=== PATIENT | female | born 1955 | race Caucasian/White ===

== ENCOUNTER 2016-11-29 17:54 | Emergency (ER) | payer BC, OTHER ==
[~2016-11-29] VITALS: Wt 87.5 kg
[~2016-11-29 17:54] MED LIST: AMLODIPINE PO; GLIMEPIRIDE PO; HYDR-3498 PO; IBUP-1542 PO; LISINOPRIL PO; METFORMIN PO; OMEPRAZOLE PO
[2016-11-29] MEDS ORDERED: ONDANSETRON 4 MG INJ IV STA ×2 (19:36→21:50)
[2016-11-29] MEDS ORDERED: SOD CHLORIDE 0.9% 500 ML IV STA (19:36)
[2016-11-29] MEDS ORDERED: morphine 4 MG/ML VIAL IV STA ×2 (19:36→21:50)
--- NOTE | 2016-11-29 19:52 | ERD ---
ER Documentation Chief Complaint Date/Time DATE: 11/29/16 TIME: 19:50 Chief Complaint LEFT SIDED FLANK PAIN X 2 DAYS HPI Extremely pleasant 60-year-old female who presents with 2 days of symptoms that include left flank and left upper quadrant abdominal pain. She does note mild fever today. The patient does describe 2 episodes of nonbloody nonbilious emesis, no diarrhea, no blood in the stool. She denies any dysuria urgency or frequency, no cough, no pleuritic pain. ROS All systems reviewed and are negative except as per history of present illness. Medications Home Meds Active Scripts Ondansetron (Ondansetron Odt) 4 Mg Tab.rapdis, 4 MG PO Q6H Y for NAUSEA AND/OR VOMITING, #20 TAB Prov:HEAVEN CORTEZ MD 11/29/16 Hydrocodone/Acetaminophen ([place] 10-325 Tablet) 1 Each Tablet, 1 TAB PO Q6H Y for PAIN, #7 TAB Prov:HEAVEN CORTEZ MD 11/29/16 Ciprofloxacin Hcl* (Ciprofloxacin Hcl*) 500 Mg Tablet, 500 MG PO BID for 7 Days , TAB Prov:HEAVEN CORTEZ MD 11/29/16 Reported Medications Metoprolol Tartrate* (Lopressor*) 25 Mg Tab, 25 MG PO BID, #60 TAB 11/29/16 Metformin Hcl* (Metformin Hcl*) 1,000 Mg Tablet, 1000 MG PO WITH BREAKFAST DINNE , #60 TAB 11/29/16 Omeprazole* (Omeprazole*) 20 Mg Capsule.dr, 20 MG PO DAILY, #30 CAP 11/29/16 Glimepiride* (Glimepiride*) 4 Mg Tablet, 4 MG PO WITH BREAKFAST DINNE, TAB 11/29/16 Discontinued Reported Medications [Omeprazole] No Conflict Check, PO 07/06/15 [Amlodipine] No Conflict Check, PO 07/06/15 [Lisinopril] No Conflict Check, PO 07/06/15 [Glimepiride] No Conflict Check, PO 07/06/15 [Metformin] No Conflict Check, PO 07/06/15 Discontinued Scripts Hydrocodone Bit-Acetaminophen* ([place]*) 5-325 Mg Tab, 1 TAB PO Q6 Y for PAIN, # 7 TAB Prov:PAIGE JIMÉNEZ MD 05/23/16 Ibuprofen* (Motrin*) 600 Mg Tab, 600 MG PO Q6H Y for PAIN AND OR ELEVATED TEMP, #30 TAB Prov:PAIGE JIMÉNEZ MD 05/23/16 Allergies Allergies: Coded Allergies: Penicillins (Unverified Allergy, Unknown, RASH, 11/29/16) PMhx/Soc History of Surgery: Yes (left foot surgery,colon polyp removed) Anesthesia Reaction: No Hx Neurological Disorder: No Hx Respiratory Disorders: No Hx Cardiac Disorders: Yes (HTN, palpitations) Hx Psychiatric Problems: No Hx Miscellaneous Medical Probl: Yes (DM type 2) Hx Alcohol Use: Yes (OCCASIONAL) Hx Substance Use: No Hx Tobacco Use: No Smoking Status: Never smoker FmHx Family History: No diabetes Physical Exam Vitals Vital Signs Date Time Temp Pulse Resp B/P Pulse Ox O2 Delivery O2 Flow Rate FiO2 11/29/16 21:00 86 18 180/96 95 11/29/16 20:26 89 18 177/103 95 11/29/16 17:56 100.8 98 20 188/95 99 Physical Exam General: Well developed, well nourished, no acute distress Head: Normocephalic, atraumatic. Eyes: Pupils equally reactive, EOM intact ENT: Moist mucous membranes Neck: Supple, no lymphadenopathy Respiratory: Lungs clear bilaterally, no distress Cardiovascular: RRR, no murmurs, rubs, or gallops Abdominal: Soft, mild tenderness to the left abdomen mid quadrant, no CVA tenderness, no peritonitis : Deferred MSK: No edema, no unilateral swelling, 5/5 strength Neurologic: Alert and oriented, moving all extremities, normal speech, no focal weakness, no cerebellar signs Skin: No rash Psych: Normal mood Result Diagram: 11/29/16199911/29/161999 Results 24 hrs Laboratory Tests Test 11/29/16 19:50 11/29/16 20:00 11/29/16 21:00 Urine Bacteria MODERATE Urine Bilirubin NEGATIVE Urine Clarity SL HAZY Urine Color LT. YELLOW Urine Glucose >=1000% Urine Hemoglobin NEGATIVE Urine Ketones NEGATIVE Urine Leukocyte Esterase 1+ Urine Microscopic RBC 0-2/HPF Urine Microscopic WBC 10-25/HPF Urine Nitrite NEGATIVE Urine Specific [place] 1.010 Urine Squamous Epithelial Cells FEW Urine Total Protein 1+ Urine Urobilinogen 0.2 E.U./dL Urine pH 6.0 Activated Partial Thromboplast Time 33.7Sec Alanine Aminotransferase (ALT/SGPT) 58IU/L Albumin 4.1g/dl Albumin/Globulin Ratio 1.10 Alkaline Phosphatase 131IU/L Anion Gap 17 Aspartate Amino Transf (AST/SGOT) 45IU/L Basophils # 0.110^3/ul Basophils % 1.1% Blood Urea Nitrogen 15mg/dl Calcium Level 9.2mg/dl Carbon Dioxide Level 29mmol/L Chloride Level 93mmol/L Creatinine 0.84mg/dl Direct Bilirubin 0.00mg/dl Eosinophils # 0.110^3/ul Eosinophils % 2.0% Globulin 3.70g/dl Glucose Level 424mg/dl Hematocrit 44.4% Hemoglobin 14.6g/dl INR International Normalized Ratio 0.93 Indirect Bilirubin 0.1mg/dl Lactic Acid Level 2.4mmol/L 1.5mmol/L Lipase 200U/L Lymphocytes # 2.110^3/ul Lymphocytes % 45.6% Mean Corpuscular Hemoglobin 26.5pg Mean Corpuscular Hemoglobin Concent 32.9g/dl Mean Corpuscular Volume 80.7fl Mean Platelet Volume 10.3fl Monocytes # 0.610^3/ul Monocytes % 12.4% Neutrophils # 1.710^3/ul Neutrophils % 38.5% Nucleated Red Blood Cells # 0.010^3/ul Nucleated Red Blood Cells % 0.0/100WBC Platelet Count 86973^3/UL Potassium Level 4.0mmol/L Prothrombin Time 12.5Sec Prothrombin Time Ratio 1.0 Red Blood Count 5.5010^6/ul Red Cell Distribution Width 13.2% Sodium Level 135mmol/L Total Bilirubin 0.1mg/dl Total Protein 7.8g/dl White Blood Count 4.510^3/ul Current Medications Medications (Trade) Dose Ordered Sig/Morris Route PRN Reason Start Time Stop Time Status Last Admin Dose Admin Sodium Chloride (NS) 500 ml @ 500 mls/hr Q1H STAT IV 11/29/16 19:36 11/29/16 20:35 DC 11/29/16 20:27 Morphine Sulfate (morphine) 4 mg ONCE STAT IV 11/29/16 19:36 11/29/16 19:38 DC 11/29/16 20:27 Ondansetron HCl 4 mg 4 mg ONCE STAT IV 11/29/16 19:36 11/29/16 19:38 DC 11/29/16 20:27 Ceftriaxone Sodium 50 ml @ 100 mls/hr ONCE ONCE IVPB 11/29/16 22:00 11/29/16 22:27 DC Sodium Chloride (NS) 1,000 ml @ 1,000 mls/hr Q1H STAT IV 11/29/16 21:50 11/29/16 22:49 11/29/16 22:01 Morphine Sulfate (morphine) 4 mg ONCE STAT IV 11/29/16 21:50 11/29/16 21:56 DC 11/29/16 22:02 Ondansetron HCl 4 mg 4 mg ONCE STAT IV 11/29/16 21:50 11/29/16 21:56 DC Ciprofloxacin/ Dextrose (Cipro Ivpb) 200 ml @ 200 mls/hr ONCE ONCE IVPB 11/29/16 22:30 11/29/16 23:29 Procedures/MDM EKG, MONITORS, & DIAGNOSTIC IMAGING: Chest x-ray: I reviewed and interpreted a 1 view of the chest Mediastinum: No enlargement Cardiac silhouette: No cardiomegaly Airspace: Clear lung auguste bilaterally without evidence of pneumothorax Bones: No evidence of fracture CT abdomen and pelvis: IMPRESSION: 1. No evidence for hydroureter nephrosis or nephroureterolithiasis. 2. No evidence for acute intra-abdominal or pelvic pathology. 3. Mild cardiomegaly and atherosclerotic vascular disease. 4. Mild diverticulosis without evidence for acute diverticulitis. 5. Degenerating leiomyomas of the uterus. LAB INTERPRETATION: No leukocytosis, borderline lactic acid that is cleared with fluid resuscitation. MEDICAL DECISION MAKING: The patient has low-grade fever, vomiting and left-sided abdominal pain. I believe this is most consistent with colonic process likely diverticulitis. Low concern for perforation. Consider possible pyelonephritis as well. Low concern for pneumonia, pulmonary embolism or ACS. Given the patient's age, comorbidities I believe CT imaging would be appropriate, laboratory testing would also be appropriate. Pain control medication provided. ER COURSE: The patient is evidence of urinary tract infection. Her CT imaging is negative. The lactic acid is possibly related to mild dehydration. The patient does not have pain out of proportion. This is not consistent with mesenteric ischemia. It is possible this is early pyelonephritis. The patient was given IV fluids and pain medication. Her lactic acid cleared. Her pain is well controlled. The patient was given ciprofloxacin. She will be discharged with a prescription for pain medication and Cipro and advised to return for any worsening symptoms. The patient states understanding. I kept the patient and/or family informed of laboratory and diagnostic imaging results throughout the emergency room course. DISPOSITION PLAN: We discussed follow up with the patient's primary care doctor within 24 to 48 hours as needed. We also discussed return to the emergency room for worsening symptoms or worsening condition. Discharge Medications: Cipro, [place], Zofran We discussed the use of narcotics including avoidance of operating heavy machinery and driving as well as its addictive properties. Departure Diagnosis: Primary Impression: Urinary tract infection Urinary tract infection type: site unspecified Hematuria presence: without hematuria Qualified Code: N39.0 - Urinary tract infection without hematuria, site unspecified Additional Impressions: Left sided abdominal pain Hyperglycemia Condition: Good HEAVEN CORTEZ MD Nov 29, 2016 19:52
[2016-11-29 20:19] LABS: ADD SCAN DIFF NO
[2016-11-29 20:21] LABS: BASOPHIL # 0.1 10^3/ul (0.0-0.1); BASOPHILS % 1.1 % (0.0-2.0); EOSINOPHILS # 0.1 10^3/ul (0.0-0.5); HEMATOCRIT 44.4 % (37.0-47.0); HEMOGLOBIN 14.6 g/dl (12.0-16.0); LYMPHOCYTES # 2.1 10^3/ul (0.8-2.9); LYMPHOCYTES % 45.6 % (15.0-51.0); MEAN CORPUSCULAR HEMOGLOBIN 26.5 pg (29.0-33.0); MEAN CORPUSCULAR HGB CONC 32.9 g/dl (32.0-37.0); MEAN CORPUSCULAR VOLUME 80.7 fl (82.0-101.0); MEAN PLATELET VOLUME 10.3 fl (7.4-10.4); MONOCYTE # 0.6 10^3/ul (0.3-0.9); MONOCYTES % 12.4 % (0.0-11.0); NEUTROPHIL # 1.7 10^3/ul (1.6-7.5); NEUTROPHILS % 38.5 % (39.0-77.0); PLATELET COUNT 292 10^3/UL (140-415); RED CELL DISTRIBUTION WIDTH 13.2 % (11.5-14.5); WHITE BLOOD COUNT 4.5 10^3/ul (4.8-10.8)
[2016-11-29 20:25] LABS: ADD UMIC YES; URINE BILIRUBIN (Dip) NEGATIVE (NEGATIVE); URINE BLOOD (Dip) NEGATIVE (NEGATIVE); URINE COLOR LT. YELLOW (YELLOW); URINE GLUCOSE (Dip) >=1000 % (NEGATIVE); URINE KETONES (Dip) NEGATIVE (NEGATIVE); URINE LEUKOCYTE ESTERASE (Dip) 1+ (NEGATIVE); URINE NITRITE (Dip) NEGATIVE (NEGATIVE); URINE TOTAL PROTEIN (Dip) 1+ (NEGATIVE); URINE UROBILINOGEN (Dip) 0.2 E.U./dL (0.1-1.0)
[2016-11-29] MEDS ORDERED: OMEP20CA16 PO (20:27)
[2016-11-29] MEDS ORDERED: GLIM4TAB PO (20:27)
--- NOTE | 2016-11-29 20:27 | RADRPT ---
PROCEDURE: XR Chest. CLINICAL INDICATION: Shortness of breath TECHNIQUE: A single portable view of the chest was obtained. COMPARISON: 05/23/2016 FINDINGS: Calcified right hilar lymph nodes are again noted. Atherosclerotic vascular disease is seen. The ca rdiomediastinal silhouette is otherwise within normal limits. The lungs and pleural spaces are audrey r. The soft tissues and osseous structures are unremarkable. IMPRESSION: No acute cardiopulmonary disease. Evidence of old granulomatous disease again seen. RPTAT: HPNM Physician Dari Date Time Electronically viewed and signed by Eduar Myles Physician on 11/29/2016 20:27 /
[2016-11-29] MEDS ORDERED: METF1000 PO (20:28)
[2016-11-29] MEDS ORDERED: METO-448 PO (20:28)
[2016-11-29 20:29] LABS: ALBUMIN 4.1 g/dl (3.3-4.9)
[2016-11-29 20:30] LABS: INR 0.93; PROTIME 12.5 Sec (12.2-14.2)
[2016-11-29 20:31] LABS: PARTIAL THROMBOPLASTIN TIME 33.7 Sec (25.0-35.0)
[2016-11-29 20:32] LABS: ALBUMIN/GLOBULIN RATIO 1.1; BILIRUBIN,INDIRECT 0.1 mg/dl (0-1.1); BILIRUBIN,TOTAL 0.1 mg/dl (0.2-1.3); CREATININE 0.84 mg/dl (0.44-1.00); TOTAL PROTEIN 7.8 g/dl (6.1-8.1)
[2016-11-29 20:33] LABS: CALCIUM 9.2 mg/dl (8.4-10.2)
[2016-11-29 20:35] LABS: BACTERIA,URINE MODERATE; SQUAMOUS EPITHELIAL CELL,UR FEW; URINE RBCS 0-2 /HPF (0)
--- NOTE | 2016-11-29 21:35 | RADRPT ---
PROCEDURE: CT abdomen and pelvis without contrast. CLINICAL INDICATION: Abdominal pain and left flank pain TECHNIQUE: CT scan of the abdomen and pelvis without contrast was performed on a multislice CT [facility] utilizing axial imaging from the lung bases through the pubis symphysis. The patient was scann ed without intravenous contrast. Sagittal and coronal reformatted images were made. The CTDIvol is 19.41 mGy and the DLP is 1080.58 mGycm. One of the following 3 dose reduction techniques were used during this CT examination: automated exp osure control; adjustment of the mA and /or kV according to patient size; or use of iterative recons truciton technique. COMPARISON: None available FINDINGS: CT abdomen: The lung bases are clear. Mild cardiomegaly is present. Mild vascular calcifications are present o f the aorta and the coronary arteries. No pericardial or pleural effusion is present. The visualized liver, spleen, pancreas, gallbladder, bilateral adrenal glands, and bilateral kidneys are normal. No evidence for hydroureter nephrosis or nephroureterolithiasis is present. The visualized bowel is nonobstructive. Mild diverticulosis is present without evidence for acute di verticulitis. The appendix is normal. No evidence for ascites or pneumoperitoneum is present. CT pelvis: The urinary bladder is well distended. The visualized uterus and bilateral adnexa is normal. Uteri ne calcifications are present compatible with degenerating leiomyomas. The imaged osseous structures demonstrates degenerative changes the bilateral sacroiliac joints and degenerative spondylosis of the spine. IMPRESSION: 1. No evidence for hydroureter nephrosis or nephroureterolithiasis. 2. No evidence for acute intra-abdominal or pelvic pathology. 3. Mild cardiomegaly and atherosclerotic vascular disease. 4. Mild diverticulosis without evidence for acute diverticulitis. 5. Degenerating leiomyomas of the uterus. RPTAT: HDC .Zaria Briscoe MD, Date Time Electronically viewed and signed by .Zaria Briscoe MD, MD on 11/29/2016 21:35 .C/
[2016-11-29] MEDS ORDERED: SOD CHLORIDE 0.9% 1,000 ML IV STA (21:50)
[2016-11-29] MEDS ORDERED: CEFTRIAXONE 1 GM/50 ML (PMX) 50 ML IVPB ONE (22:00)
[2016-11-29] MEDS ORDERED: CIPROFLOXACIN 400MG/D5W 200 ML IVPB ONE (22:30)
[2016-11-29] MEDS ORDERED: HYDR-902 PO (22:44)
[2016-11-29] MEDS ORDERED: ONDA4TAB14 PO (22:44)
[2016-11-29] MEDS ORDERED: CIPR500T4 PO (22:44)
[2016-11-30 01:13] VITALS: BP 178/90; PULSE 77; RESP 19
== END 2016-11-30 01:13 | disposition home or self-care (01) ==
LOC: E/R 17:54
DX: N39.0 Urinary tract infection, site not specified (principal); E11.65 Type 2 diabetes mellitus with hyperglycemia; I10 Essential (primary) hypertension; Z79.84 Long term (current) use of oral hypoglycemic drugs
CPT/HCPCS: 71010; 74176; 80053; 81001; 81003; 83605; 83690; 85025; 85610; 85730; 87040; J0744; J2270; J2405; J7030; J7040; 36415; 96374; 96375; 96376

== ENCOUNTER 2017-11-19 14:37 | Inpatient (IN) | END 2017-11-26 14:25 | disposition home or self-care (01) | DRG 66 ==

== ENCOUNTER 2019-04-03 21:25 | Emergency (ER) | payer OTHER ==
[~2019-04-03] VITALS: Ht 154.9 cm; Wt 87.9 kg
[~2019-04-03 21:25] MED LIST changes: +AMLO-145 PO; -AMLODIPINE PO; +ASPI325T32 PO; +ATOR-2 PO; -GLIMEPIRIDE PO; -HYDR-3498 PO; +HYDR-3671 PO; -IBUP-1542 PO; +LANT3I SC; +LISI-471 PO; -LISINOPRIL PO; +METF100010 PO; -METFORMIN PO; +METO-429 PO; +OMEP20CA16 PO; -OMEPRAZOLE PO; +REPA1TAB14 PO
[2019-04-03 21:36] VITALS: Ht 154.9 cm; Wt 87.9 kg
[2019-04-03] MEDS ORDERED: ACETAMINOPHEN 325 MG TAB PO STA (21:41)
[2019-04-03] MEDS ORDERED: SODIUM CHLORIDE 0.9% 1L BAG IV* STA (21:41)
[2019-04-03] MEDS ORDERED: AZITHROMYCIN 500MG/NS (PMX) 250 ML IV STA (21:41)
[2019-04-03] MEDS ORDERED: CEFTRIAXONE 1 GM/50 ML (PMX) 50 ML IVPB STA (21:41)
[2019-04-03] MEDS ORDERED: KETOROLAC 15 MG INJ IV STA (21:45)
[2019-04-04] MEDS ORDERED: ALBU18HF INHALATION (00:10)
[2019-04-04] MEDS ORDERED: DOXY100T20 PO (00:10)
[2019-04-04] MEDS ORDERED: IBUP800T48 PO (00:10)
[2019-04-04] MEDS ORDERED: CEPH-443 PO (00:10)
[2019-04-04 00:11] VITALS: BP 143/82; PULSE 98; RESP 16
--- NOTE | 2019-04-04 00:14 | ERD ---
ER Documentation Chief Complaint Chief Complaint C/O LT SIDE CP RADIATING TO BACK, FEVER X1 DAYS, ROJO HPI Very pleasant 63-year-old female who presents to the emergency room complaining of left-sided chest wall pain. She has a slight cough and fever. The cough is minimally productive. The chest pain is worse with coughing and rotational movement. No pleuritic pain. She does describe a gradual onset frontal headache. No dysuria urgency or frequency, no flank pain abdominal pain nausea vomiting or diarrhea. No rash, no neck stiffness. Symptoms are moderate. ROS All systems reviewed and are negative except as per history of present illness. Medications Home Meds Active Scripts Ibuprofen* (Motrin*) 800 Mg Tab, 800 MG PO Q6H PRN for PAIN AND OR ELEVATED TEMP, #30 TAB Prov:HEAVEN CORTEZ MD 04/04/19 Albuterol Sulfate* (Ventolin HFA*) 18 Gm Hfa.aer.ad, 2 PUFF INHALATION Q4H, #1 INHALER Prov:HEAVEN CORTEZ MD 04/04/19 Cephalexin* (Keflex*) 500 Mg Capsule, 500 MG PO BID for 7 Days, CAP Prov:HEAVEN CORTEZ MD 04/04/19 Doxycycline Hyclate* (Doxycycline Hyclate*) 100 Mg Tablet., 100 MG PO BID for 7 Days, TAB Prov:HEAVEN CORTEZ MD 04/04/19 Repaglinide* (Prandin*) 1 Mg Tablet, 1 MG PO AC MEALS, #90 TAB Prov:JAVON CASTRO NP 11/25/17 Insulin Glargine* (Lantus*) 100 Unit/Ml Soln, 24 UNIT SC DAILY@08 for 30 Days, #1 UNIT Prov:JAVON CASTRO NP 11/25/17 Aspirin (Aspir-Sindhu) 325 Mg Tablet., 325 MG PO DAILY, #30 TAB Prov:JAVON CASTRO NP 11/25/17 Atorvastatin* (Atorvastatin*) 80 Mg Tablet, 80 MG PO QHS, #30 TAB Prov:JAVON CASTRO NP 11/25/17 Amlodipine Besylate* (Amlodipine Besylate*) 5 Mg Tablet, 10 MG PO BID, #60 TAB Prov:JAVON CASTRO NP 11/25/17 Hydralazine Hcl* (Hydralazine Hcl*) 25 Mg Tab, 25 MG PO Q8, #90 TAB Prov:JAVON CASTRO VETERINARY RECEPTIONIST 11/25/17 Metoprolol Tartrate* (Lopressor*) 50 Mg Tab, 50 MG PO BID, #60 TAB Hold for SBP less than 110 mm Hg and/or heart rate less than 60/min. Prov:JAVON CASTRO VETERINARY RECEPTIONIST 11/25/17 Lisinopril* (Lisinopril*) 20 Mg Tablet, 20 MG PO DAILY, #30 TAB Prov:JAVON CASTRO VETERINARY RECEPTIONIST 11/25/17 Reported Medications Metformin Hcl* (Metformin Hcl*) 1,000 Mg Tablet, 1000 MG PO WITH BREAKFAST DINNE, #60 TAB 11/29/16 Omeprazole* (Omeprazole*) 20 Mg Capsule.dr, 20 MG PO DAILY, #30 CAP 11/29/16 Allergies Allergies: Coded Allergies: Penicillins (Unverified Allergy, Unknown, RASH, 11/29/16) PMhx/Soc History of Surgery: Yes (polyp stomach removal 3 years ago, growth in foot removal 10 yrs ago) Anesthesia Reaction: No Hx Neurological Disorder: No Hx Respiratory Disorders: No Hx Cardiac Disorders: Yes (HTN, high cholesterol) Hx Psychiatric Problems: No Hx Miscellaneous Medical Probl: Yes Hx Alcohol Use: No Hx Substance Use: No Hx Tobacco Use: No Smoking Status: Never smoker FmHx Family History: No diabetes Physical Exam Vitals Vital Signs Date Temp Pulse Resp B/P (MAP) Pulse Ox O2 O2 Flow FiO2 Time Delivery Rate 04/03/19 39.7 22:06 04/03/19 103.4 112 22 186/46 91 21:36 (92) Physical Exam General: Well developed, well nourished, no acute distress Head: Normocephalic, atraumatic. Eyes: Pupils equally reactive, EOM intact ENT: Moist mucous membranes Neck: Supple, no lymphadenopathy Respiratory: Scant rhonchi at the left base, no distress Cardiovascular: RRR, no murmurs, rubs, or gallops Abdominal: Soft, non-tender, non-distended, no peritoneal signs : Deferred MSK: No edema, no unilateral swelling, 5/5 strength Neurologic: Alert and oriented, moving all extremities, normal speech, no focal weakness, no cerebellar signs, no meningismus Skin: No rash Psych: Normal mood Result Diagram: 04/03/19215104/03/192151 Results 24 hrs Laboratory Tests Test 04/03/19 21:52 04/03/19 21:56 White Blood Count 12.7 10^3/ul Red Blood Count 4.95 10^6/ul Hemoglobin 13.2 g/dl Hematocrit 39.7 % Mean Corpuscular Volume 80.2 fl Mean Corpuscular Hemoglobin 26.7 pg Mean Corpuscular Hemoglobin Concent 33.2 g/dl Red Cell Distribution Width 13.2 % Platelet Count 334 10^3/UL Mean Platelet Volume 9.7 fl Immature Granulocytes % 0.600 % Neutrophils % 83.8 % Lymphocytes % 8.3 % Monocytes % 6.5 % Eosinophils % 0.2 % Basophils % 0.6 % Nucleated Red Blood Cells % 0.0 /100WBC Immature Granulocytes # 0.080 10^3/ul Neutrophils # 10.7 10^3/ul Lymphocytes # 1.1 10^3/ul Monocytes # 0.8 10^3/ul Eosinophils # 0.0 10^3/ul Basophils # 0.1 10^3/ul Nucleated Red Blood Cells # 0.0 10^3/ul Prothrombin Time 12.8 Sec Prothrombin Time Ratio 1.0 INR International Normalized Ratio 0.95 Activated Partial Thromboplast Time 36.9 Sec Urine Color YELLOW Urine Clarity SLIGHTLY CLOUDY Urine pH 6.0 Urine Specific [place] 1.025 Urine Ketones TRACE mg/dL Urine Nitrite NEGATIVE mg/dL Urine Bilirubin NEGATIVE mg/dL Urine Urobilinogen NEGATIVE mg/dL Urine Leukocyte Esterase TRACE Vanessa/ul Urine Microscopic RBC 1 /HPF Urine Microscopic WBC 35 /HPF Urine Bacteria FEW /HPF Urine Hemoglobin NEGATIVE mg/dL Urine Glucose 3+ mg/dL Urine Total Protein 3+ mg/dl Sodium Level 133 mmol/L Potassium Level 4.1 mmol/L Chloride Level 97 mmol/L Carbon Dioxide Level 26 mmol/L Anion Gap 10 Blood Urea Nitrogen 17 mg/dl Creatinine 0.86 mg/dl Est Glomerular Filtrat Rate mL/min > 60 mL/min Glucose Level 324 mg/dl Calcium Level 9.6 mg/dl Total Bilirubin 0.8 mg/dl Direct Bilirubin 0.00 mg/dl Indirect Bilirubin 0.8 mg/dl Aspartate Amino Transf (AST/SGOT) 27 IU/L Alanine Aminotransferase (ALT/SGPT) 41 IU/L Alkaline Phosphatase 139 IU/L Troponin I < 0.012 ng/ml Total Protein 8.3 g/dl Albumin 4.5 g/dl Globulin 3.80 g/dl Albumin/Globulin Ratio 1.18 POC Venous Lactate 1.2 mmol/L Current Medications Medications Dose Sig/Morris Start Time Status Last (Trade) Ordered Route PRN Stop Time Admin Dose Reason Admin Sodium 2,640 ml BOLUS OVER 2 04/03/19 DC 04/03/19 Chloride HOURS STAT 21:41 22:01 (NS) IV* 04/03/19 21:43 650 mg ONCE STAT 04/03/19 DC 04/03/19 Acetaminophen PO 21:41 22:06 (Tylenol 04/03/19 21:43 Tab) Ceftriaxone 50 ml @ ONCE STAT 04/03/19 DC 04/03/19 Sodium 100 mls/hr IVPB 21:41 22:04 04/03/19 22:10 Azithromycin 250 ml @ ONCE STAT 04/03/19 DC 04/03/19 250 mls/hr IV 21:41 21:41 04/03/19 22:40 Ketorolac 15 mg ONCE STAT 04/03/19 DC 04/03/19 Tromethamine IV 21:45 22:05 (Toradol) 04/03/19 21:46 Procedures/MDM EKG, MONITORS, & DIAGNOSTIC IMAGING: EKG: I reviewed and interpreted a 12-lead EKG. Rhythm: Normal sinus rhythm ST Changes: No contiguous ST segment elevations T waves: No contiguous T wave inversions Impression: No evidence of acute cardiac ischemia Chest x-ray: I reviewed and interpreted a 1 view of the chest Mediastinum: No enlargement Cardiac silhouette: No cardiomegaly Airspace: Clear lung auguste bilaterally without evidence of pneumothorax Bones: No evidence of fracture LAB INTERPRETATION: I reviewed the laboratory testing and it shows normal lactic acid, possible urinary tract infection MEDICAL DECISION MAKING: Patient presents with a fever, chest wall pain and cough. Her clinical exam is consistent with likely community acquired pneumonia. Patient has no other symptoms concerning for serious systemic illness but given the patient's sirs criteria, code sepsis initiated. Patient is otherwise well-appearing, ER COURSE: * Laboratory testing is extremely reassuring. Lactic acid is reassuring. Urinalysis consistent with likely UTI. Patient given empiric ceftriaxone and azithromycin to cover community acquired pneumonia. This will appropriately treat her urinary tract infection. * Vital signs and symptoms were generalized. The patient's oxygen saturation are 93% and above. She has no respiratory distress. * At this point I do believe that the patient will do well on an outpatient basis with oral antibiotics. Return precautions were discussed and understood. Patient feels very comfortable at discharge. CONSULTATION: None DISPOSITION PLAN: The patient does not have an identifiable emergent medical condition that warrants inpatient hospitalization at this time. The patient is deemed safe for discharge with outpatient follow-up. We discussed follow up with the patient's primary care doctor within 24 to 48 hours as needed. We also discussed return to the emergency room for worsening symptoms or worsening condition. Outpatient referral: None required Discharge Medications: Doxycycline, Keflex, Ventolin Departure Diagnosis: Primary Impression: Community acquired pneumonia Laterality: left Lung location: lower lobe of lung Qualified Codes: J18.1 - Lobar pneumonia, unspecified organism Additional Impression: UTI (urinary tract infection) Urinary tract infection type: acute cystitis Hematuria presence: without hematuria Qualified Codes: N30.00 - Acute cystitis without hematuria Condition: Stable Patient Instructions: Understanding Urinary Tract Infections (UTIs), Pneumonia (Adult) Referrals: [facility] Usted se rojo hecho un examen mdico de control que le indica que no est en stephanie condicin que requiera tratamiento urgente en el Departamento de Emergencia. Un estudio ms profundo y el tratamiento de gibson condicin pueden esperar sin ningn riesgo hasta que usted sea atendida/o en el consultorio de gibson mdico o stephanie clnica. Es responsabilidad suya arreglar stephanie viviana para el seguimiento del jennifer. MANEJO DE CONDICIONES NO URGENTES EN EL FUTURO 1) Si usted tiene un mdico de atencin primaria: Usted debera llamar a gibson mdico de atencin primaria antes de venir al departamento de emergencia. Despus de las horas de consultorio, gibson doctor o gibson asociado/a est disponible por telfono. El mdico o enfermero de chayo en el servicio telefnico puede asesorarle por elizabeth medio para atender el problema, o jennifer contrario se puede programar stephanie viviana. 2) Si usted no tiene un mdico de atencin primaria: Llame al mdico o clnica de referencia que aparece abajo elsa las horas de consultorio para hacer stephanie viviana para que le vean. CLINICAS: [facility] [phone] [facility] [phone] [facility] [phone] [facility] [phone] [place] [id number] [phone] [facility] [phone] [address] [facility]. [facility] () Usted se rojo hecho un examen mdico de control que le indica que no est en stephanie condicin que requiera tratamiento urgente en el Departamento de Emergencia. Un estudio ms profundo y el tratamiento de gibson condicin pueden esperar sin ningn riesgo hasta que usted sea atendida/o en el consultorio de gibson mdico o stephanie clnica. Es responsabilidad suya arreglar stephanie viviana para el seguimiento del jennifer. MANEJO DE CONDICIONES NO URGENTES EN EL FUTURO 1) Si usted tiene un mdico de atencin primaria: Usted debera llamar a gibson mdico de atencin primaria antes de venir al departamento de emergencia. Despus de las horas de consultorio, gibson doctor o gibson asociado/a est disponible por telfono. El mdico o enfermero de chayo en el servicio telefnico puede asesorarle por elizabeth medio para atender el problema, o jennifer contrario se puede programar stephanie viviana. 2) Si usted no tiene un mdico de atencin primaria: Llame al mdico o condado institucions de referencia que aparece abajo elsa las horas de consultorio para hacer stephanie viviana para que le vean. SI USTED NO PUEDE PAGAR PARA YURDIIA UN MEDICO puede ir a: [facility] [phone] [place] [address] [facility] [address] [place] [address] [facility] [address] [place] [address] [facility] [address] [place], [place] [phone] Additional Instructions: Llame al doctor MAANA y rc stephanie VIVIANA PARA DENTRO DE 2-3 WATTS.Dgale a la secretaria que nosotros le instruimos hacer esta viviana.Avise o llame si gibson condicin se empeora antes de la viviana. Regresa aqui si peor o no mejor. HEAVEN CORTEZ MD Apr 04, 2019 00:14
== END 2019-04-04 00:32 | disposition home or self-care (01) ==
LOC: E/R 21:25
DX: J18.1 Lobar pneumonia, unspecified organism (principal); R40.2142 Coma scale, eyes open, spontaneous, at arrival to emergency department; R40.2362 Coma scale, best motor response, obeys commands, at arrival to emergency department; R40.2252 Coma scale, best verbal response, oriented, at arrival to emergency department; N30.00 Acute cystitis without hematuria; I10 Essential (primary) hypertension; Z79.4 Long term (current) use of insulin; Z79.82 Long term (current) use of aspirin
CPT/HCPCS: 71045; 80053; 81001; 83605; 84484; 85025; 85610; 85730; 87040; 87086; 93005; 96374; 96375; 99285; J0456; J0696; J1885; J7030